=== PATIENT | female | born 1960 | race Caucasian/White ===

== ENCOUNTER 2017-09-05 12:33 | Inpatient (IN) ==
[2017-09-05] MEDS ORDERED: FLEXERIL PO PRN (12:54)
[2017-09-05 13:06] VITALS: BMI 36.0
[2017-09-05] MEDS: ROCEPHIN 1 GM in SODIUM CHLORIDE 50 ML IV SCH (13:34)
[2017-09-05] MEDS: SOLU-CORTEF 250 MG IVP SCH ×2 (13:35→21:45)
[2017-09-05] MEDS: DEXTROSE 5%-1/2NS IV SOLUTION 1,000 ML IV SCH (13:35)
[2017-09-05] MEDS: ZITHROMAX PO SCH (13:35)
--- NOTE | 2017-09-05 15:26 | DI ---
EXAM: Two views of the chest. History: Bronchitis. Findings: Heart size is within normal limits. No focal consolidation. No appreciable pleural fluid and no pneumothorax. Calcified granuloma within the left lower lobe. Hiatal hernia. Postsurgical changes of the cervical spine. Postsurgical changes of the lumbar spine. Moderate to severe degener ative disc disease within the upper lumbar spine. Impression: 1. No acute cardiopulmonary process. 2. Hiatal hernia
[2017-09-05] MEDS: XOPENEX 1.25 MG NEB SCH ×2 (17:05→23:03)
[2017-09-05] MEDS: TUSSIONEX PO SCH ×2 (17:22→21:45)
[2017-09-06] MEDS: DEXTROSE 5%-1/2NS IV SOLUTION 1,000 ML IV SCH ×2 (00:53→08:55)
[2017-09-06] MEDS: PRILOSEC PO SCH (05:39)
[2017-09-06] MEDS: SOLU-CORTEF 250 MG IVP SCH ×3 (05:39→21:09)
[2017-09-06] MEDS: XOPENEX 1.25 MG NEB SCH ×4 (05:45→22:50)
[2017-09-06] MEDS ORDERED: NON-FORMULARY MEDICATION (Omeprazole Magnesium [Prilosec Otc] 1 TAB) PO SCH (06:30)
[2017-09-06] MEDS ORDERED: DEXTROSE 5%-1/2NS IV SOLUTION 1,000 ML IV SCH (08:14)
[2017-09-06] MEDS: ROCEPHIN 1 GM in SODIUM CHLORIDE 50 ML IV SCH (08:52)
[2017-09-06] MEDS: TUSSIONEX PO SCH ×2 (08:53→21:09)
[2017-09-06] MEDS: ZITHROMAX PO SCH (08:53)
[2017-09-06] MEDS: PROZAC PO SCH (08:53)
[2017-09-06] MEDS: ZEBETA PO SCH (08:53)
[2017-09-06] MEDS: ULTRAM PO SCH (08:53)
[2017-09-06] MEDS: [UNRECOGNIZED DRUG - OTHER] PO SCH (08:54)
--- NOTE | 2017-09-06 09:38 | PCM.PROG ---
Attending Provider: ATTENDING PROVIDER: Dr. JEN AGUILAR This patient is seen with Jayne Agarwal, Nurse Practitioner. DATE OF SERVICE: 09/06/17 SUBJECTIVE: This 57 year old WHITE/ F was hospitalized 09/05/17. The patient is sitting in bed, alert. States she didn't sleep last night. She still has severe congestion, cough. No fever. REVIEW OF SYSTEMS: CONSTITUTIONAL: Weakness. No night sweats. No malaise, lethargy. No fever or chills. HEENT: Eyes: No visual changes. No eye pain. No eye discharge. ENT: No runny nose. No epistaxis. No sinus pain. No odynophagia. No congestion. RESPIRATORY: Cough and congestion. No hemoptysis. No shortness of breath. CARDIOVASCULAR: No angina symptoms. No CHF symptoms. No atypical chest pain for CAD. No palpitations. No orthopnea.. GASTROINTESTINAL: No abdominal pain. No nausea or vomiting. No diarrhea or constipation. No hematemesis. No hematochezia. GENITOURINARY: No urgency. No frequency. No dysuria. No hematuria. No obstructive symptoms. No discharge. No pain. No significant abnormal bleeding. MUSCULOSKELETAL: No musculoskeletal pain; no joint swelling. NEUROLOGICAL: Awake, alert, oriented to time, place and person. No headache. No neck pain. No syncope. No seizures. No dizziness. PSYCHIATRIC: Not anxious. No depression. No suicidal thoughts. No homicidal thoughts. SKIN: No rash. No lesions. No wounds. ENDOCRINE: No unexplained weight loss. No weight gain. HEMATOLOGIC/LYMPHATIC: No anemia. No purpura. No petechiae. No prolonged or excessive bleeding. No palpable lymph nodes. PHYSICAL EXAMINATION: GENERAL: The patient is awake, alert and oriented, sitting in bed in no distress. VITAL SIGNS: Temperature 98.1 F, Pulse 70, Respiratory Rate 16, BP 147/92, Pulse Ox 93% HEENT: Head normocephalic, atraumatic. Eyes: Extraocular muscles are intact. Pupils are equal, round and reactive to light and accommodation. Ears: No lesions. Nose appeared normal. Throat: No exudate or erythema. NECK: Supple. No JVD, no carotid bruit. No lymphadenopathy or thyromegaly. LUNGS: Bilateral rhonchi on auscultation. Percussion note normal. Chest symmetrical. HEART: S1, S2, no S3. No murmurs. No cyanosis or clubbing. No ascites. Pulses: Dorsalis pedis and posterior tibial pulses +1 to +2 both sides. ABDOMEN: Soft. Non-tender. Bowel sounds active. No CVA tenderness. No mass felt. EXTREMITIES: No edema. Full range of motion of all extremities, equal. NEUROLOGIC: No focal deficit. Cranial nerves II through XII are grossly intact. No headache, no double vision or headache. SKIN: Not dry. Intact. Turgor-normal. LYMPHATIC: No palpable lymph nodes/no lymphedema. MUSCULOSKELETAL: Normal joints with no swelling. Muscle tone is normal. LAB REVIEW: 09/06/17 04:30 09/06/17 04:30 09/06/17 04:30: Sodium 141, Potassium 3.9, Chloride 103, Carbon Dioxide 25, Anion Gap 16.9, BUN 15, Creatinine 0.72, Estimated GFR (MDRD) 83.00, BUN/ Creatinine Ratio 20.83, Glucose 155 H D, Calcium 9.1, Total Bilirubin 0.2, AST 20, ALT 27, Alkaline Phosphatase 134, Total Protein 7.0, Albumin 3.2 L, Globulin 3.8, Albumin/Globulin Ratio 0.84 09/06/17 04:30: WBC 8.30, RBC 3.49 L, Hgb 10.8 L, Hct 32.9 L, MCV 94.3, MCH 30.9 , MCHC 32.8, RDW Coeff of Winnie 13.5, Plt Count 279, Immature Gran % (Auto) 0.6, Neut % (Auto) 82.2, Lymph % (Auto) 13.6, [place] % (Auto) 3.6, Eos % (Auto) 0.0, Baso % (Auto) 0.0, Immature Gran # (Auto) 0.1, Neut # (Auto) 6.8, Lymph # (Auto ) 1.1, [place] # (Auto) 0.3 L, Eos # (Auto) 0.0, Baso # (Auto) 0.0 09/05/17 13:00: Influ A Molecular Assay Negative by naat, Influ B Molecular Assay Negative by naat 09/05/17 12:55: Sodium 140, Potassium 3.6, Chloride 104, Carbon Dioxide 26, Anion Gap 13.6, BUN 18, Creatinine 0.70, Estimated GFR (MDRD) 86.00, BUN/ Creatinine Ratio 25.71, Glucose 99, Calcium 9.3, Total Bilirubin 0.3, AST 24, ALT 28, Alkaline Phosphatase 141, Total Protein 7.6, Albumin 3.5, Globulin 4.1, Albumin/Globulin Ratio 0.85 09/05/17 12:55: WBC 11.38 H, RBC 3.78 L, Hgb 11.9 L, Hct 35.6 L, MCV 94.2, MCH 31.5 H, MCHC 33.4, RDW Coeff of Winnie 13.4, Plt Count 320, Immature Gran % (Auto) 0.4, Neut % (Auto) 79.4, Lymph % (Auto) 14.0, [place] % (Auto) 5.9, Eos % (Auto) 0.0, Baso % (Auto) 0.3, Immature Gran # (Auto) 0.0, Neut # (Auto) 9.1 H, Lymph # (Auto) 1.6, [place] # (Auto) 0.7, Eos # (Auto) 0.0, Baso # (Auto) 0.0 ASSESSMENT: 1. ACUTE PNEUMONITIS 2. FLU LIKE SYNDROME 3. DEHYDRATION RESOLVED PLAN: 1. Decrease IV antibiotics 80 cc/hr 2. Continue IV steroids 3. 1 mg Ativan q.h.s. Plan and coordination of the patient's care discussed in the presence of Manager Market and nurse. CONDITION: Stable SCRIBED BY: BISHNU WATSON Sports Cartoonist scribed while in presence of service performed by Dr. Aguilar/Jayne Agarwal APRN on 09/06/17 ([id number])
[2017-09-06] MEDS ORDERED: ATIVAN PO SCH (21:00)
[2017-09-07] MEDS: XOPENEX 1.25 MG NEB SCH ×2 (04:42→11:09)
[2017-09-07] MEDS: PRILOSEC PO SCH (05:37)
[2017-09-07] MEDS: SOLU-CORTEF 250 MG IVP SCH (05:37)
[2017-09-07] MEDS ORDERED: K-DUR PO STA (08:40)
[2017-09-07] MEDS: ROCEPHIN 1 GM in SODIUM CHLORIDE 50 ML IV SCH (09:54)
[2017-09-07] MEDS: ZITHROMAX PO SCH (09:55)
[2017-09-07] MEDS: ZEBETA PO SCH (09:55)
[2017-09-07] MEDS: PROZAC PO SCH (09:55)
[2017-09-07] MEDS: [UNRECOGNIZED DRUG - OTHER] PO SCH (09:55)
[2017-09-07] MEDS: ULTRAM PO SCH (09:57)
[2017-09-07] MEDS: TUSSIONEX PO SCH (09:57)
--- NOTE | 2017-09-07 10:01 | PN ---
DATE OF SERVICE: 09/06/17 SUBJECTIVE: The patient was hospitalized with acute bronchitis/pneumonitis. Hydration status has improved. The patient had a restless night likely due from steroids. PHYSICAL EXAMINATION: HEENT: Head normocephalic, atraumatic. Eyes: Extraocular muscles are intact. Pupils are equal, round and reactive to light and accommodation. Ears: No lesions. Nose appeared normal. Throat: No exudate or erythema. NECK: Supple. No JVD, no carotid bruit. No lymphadenopathy or thyromegaly. LUNGS: Mild wheezing but good air entry. Still coughing. Clear to auscultation. Percussion note normal. Chest symmetrical. HEART: S1, S2, no S3. No murmurs. No cyanosis or clubbing. No ascites. Pulses: Dorsalis pedis and posterior tibial pulses +1 to +2 both sides. ABDOMEN: Soft. Nontender. Bowel sounds active. No CVA tenderness. No mass felt. EXTREMITIES: No edema. Full range of motion of all extremities, equal. NEUROLOGIC: No focal deficit. Cranial nerves II through XII are grossly intact. No headache, no double vision or headache. SKIN: Not dry. Intact. Turgor - normal. LYMPHATIC: No palpable lymph nodes/no lymphedema. MUSCULOSKELETAL: Normal joints with no swelling. Muscle tone is normal. CONDITION: Improved. PLAN: 1. Continue steroids, Antibiotics and NEBS treatment. The patient was seen and examined with Nurse Practitioner. TIME SPENT: More than 30 minutes. Plan and coordination of the patient's care discussed in the presence of nurse. EVARISTO
--- NOTE | 2017-09-07 11:03 | HP ---
DATE OF SERVICE: 09/05/17 REASON FOR HOSPITALIZATION/HISTORY OF PRESENT ILLNESS: Treated for upper respiratory tract infection/ Flu symptoms for 7 days- steroids , antibiotics. No improvement. Seen on 09/03/17. Coughing and wheezing. Did not sleep last night. Appetite not good. No symptoms of CHF and CAD. PAST MEDICAL HISTORY: Mitral valve prolapse Hypertension Dyslipidemia Migraine headaches Fibromyalgia Osteoarthritis DJD spine Hypothyroidism Metabolic Syndrome Small sliding hiatal hernia GERD Diverticulosis Depression/Anxiety PAST SURGICAL HISTORY: Two back fusion Two neck fusions REVIEW OF SYSTEMS: CONSTITUTIONAL: Fever, Fatigue. HEENT: Sinus drainage, no sore throat. RESPIRATORY: Cough, no congestion. CARDIOVASCULAR: No atypical chest pain for coronary artery disease. No angina , CHF symptoms, palpitations or shortness of breath. GASTROINTESTINAL: No melena or abdominal pain. No GERD. GENITOURINARY: No hematuria, no prostatism, no polyuria. CONSUMER SAFETY OFFICER: No blackout, Dizziness, no headache, no double vision. MUSCULOSKELETAL: Osteoarthritis pain, no joint swelling. ENDOCRINE: No weight loss, no weight gain. SKIN: Not dry, no rash. PSYCHIATRIC: Anxious, no depression, no suicidal thoughts, no homicidal thoughts. SOCIAL HISTORY: Marital Status: Lives with spouse. Alcohol Usage: No. Tobacco Usage: No. FAMILY HISTORY: Father COPD Mother COPD Brother 2- 1 Diabetes Mellitus type 2 at 58 and one alive 57 TIA Sister 1 age 50 Diabetes Mellitus MEDICATIONS: Imitrex 50mg PRN Zebeta 5mg PO daily Tramadol 50mg PO daily Hormones Prozac 60mg PO daily Flexeril 5mg PO three times a day PRN Pravachol 20mg PO daily Omeprazole 20mg PO QDAC ALLERGIES: Lipitor Wellbutrin Lexapro DN 100 PHYSICAL EXAMINATION: V/S: Pulse 67, blood pressure 126/82, Temperature 98.8, Oxygen saturation 95%. GENERAL APPEARANCE: Oriented times three. HEENT: Normal. NECK: No JVP, no bruits. RESPIRATORY: Lungs are clear with decreased breath sounds. CARDIOVASCULAR: S1, S2, no S3, no murmurs. No cyanosis, clubbing. No ascites. GI/ABDOMEN: No tenderness. Bowel sounds are active. EXTREMITIES: edema, pulses +1, equal. CONSUMER SAFETY OFFICER: Deep tendon reflexes, sensory, motor and gait all normal. RECTAL: Dr. Dupont 2015/PELVIC: Dr. Andrade . Mammogram -[facility] 08/21/16 negative [facility] SKIN: Dry. Skin Turgor: Not good. ASSESSMENT: 1. Acute pneumonia/bronchitis 2. Dehydration 3. Flu Syndrome 4. Hyperglycemia 5. L Spine surgery, [place] 6. CURTIS 7. Depression 8. Fibromyalgia 9. Mets syndrome 10.Migraine headaches 11.Anemia 12.Dyslipidemia PLAN: 1. Admit regular 2. Diet regular 3. 1000cc D5 1/2 normal saline 8 hourly 4. Solu-Cortef 125mg IV now and 8 hours 5. Xopenex NEBS Q 6 hours 6. Zithromax 500mg PO daily x3 days 7. Rocephin 1 gram PO Q 24 hourly 8. Tussionex one teaspoon PO now and twice a day 9. X-ray chest and EKG today 10.Rapid Flu A and B 11.Continue all home medication except Prednisone, Keflex and Phenergan with codeine 12.Sputum for culture and sensitivity 13.CBC and CMP today and daily AM TIME SPENT: More than 70 minutes. MTDD
--- NOTE | 2017-09-07 11:17 | PCM.PROG ---
Attending Provider: ATTENDING PROVIDER: Dr. JEN AGUILAR This patient is seen with Jayne Agarwal, Nurse Practitioner. DATE OF SERVICE: 09/07/17 SUBJECTIVE: This 57 year old WHITE/ F was hospitalized 09/05/17. The patient is lying in bed, alert. She walked around yesterday and is feeling much better. She is not short of breath. No fever. REVIEW OF SYSTEMS: CONSTITUTIONAL: Fatigue. No night sweats. No malaise, lethargy. No fever or chills. HEENT: Eyes: No visual changes. No eye pain. No eye discharge. ENT: No runny nose. No epistaxis. No sinus pain. No odynophagia. No congestion. RESPIRATORY: Cough. No congestion. No hemoptysis. No shortness of breath. CARDIOVASCULAR: No angina symptoms. No CHF symptoms. No atypical chest pain for CAD. No palpitations. No orthopnea.. GASTROINTESTINAL: No abdominal pain. No nausea or vomiting. No diarrhea or constipation. No hematemesis. No hematochezia. GENITOURINARY: No urgency. No frequency. No dysuria. No hematuria. No obstructive symptoms. No discharge. No pain. No significant abnormal bleeding. MUSCULOSKELETAL: No musculoskeletal pain; no joint swelling. NEUROLOGICAL: Awake, alert, oriented to time, place and person. No headache. No neck pain. No syncope. No seizures. No dizziness. PSYCHIATRIC: Not anxious. No depression. No suicidal thoughts. No homicidal thoughts. SKIN: No rash. No lesions. No wounds. ENDOCRINE: No unexplained weight loss. No weight gain. HEMATOLOGIC/LYMPHATIC: No anemia. No purpura. No petechiae. No prolonged or excessive bleeding. No palpable lymph nodes. PHYSICAL EXAMINATION: GENERAL: The patient is awake, alert and oriented, sitting in bed in no distress. VITAL SIGNS: Temperature 98.5 F, Pulse 89, Respiratory Rate 18, BP 137/94, Pulse Ox 97% HEENT: Head normocephalic, atraumatic. Eyes: Extraocular muscles are intact. Pupils are equal, round and reactive to light and accommodation. Ears: No lesions. Nose appeared normal. Throat: No exudate or erythema. NECK: Supple. No JVD, no carotid bruit. No lymphadenopathy or thyromegaly. LUNGS: Diminished breath sounds bilaterally significantly improved. Clear to auscultation. Percussion note normal. Chest symmetrical. HEART: S1, S2, no S3. No murmurs. No cyanosis or clubbing. No ascites. Pulses: Dorsalis pedis and posterior tibial pulses +1 to +2 both sides. ABDOMEN: Soft. Non-tender. Bowel sounds active. No CVA tenderness. No mass felt. EXTREMITIES: No edema. Full range of motion of all extremities, equal. NEUROLOGIC: No focal deficit. Cranial nerves II through XII are grossly intact. No headache, no double vision or headache. SKIN: Not dry. Intact. Turgor-normal. LYMPHATIC: No palpable lymph nodes/no lymphedema. MUSCULOSKELETAL: Normal joints with no swelling. Muscle tone is normal. LAB REVIEW: 09/07/17 05:28 09/07/17 05:28 09/07/17 05:28: Sodium 142, Potassium 3.4 L, Chloride 102, Carbon Dioxide 27, Anion Gap 16.4, BUN 20 H, Creatinine 0.68, Estimated GFR (MDRD) 89.00, BUN/ Creatinine Ratio 29.41, Glucose 123 H, Calcium 8.8, Total Bilirubin 0.1, AST 29 , ALT 32, Alkaline Phosphatase 131, Total Protein 6.7, Albumin 3.0 L, Globulin 3.7, Albumin/Globulin Ratio 0.81 09/07/17 05:28: WBC 9.21, RBC 3.41 L, Hgb 10.5 L, Hct 32.0 L, MCV 93.8, MCH 30.8 , MCHC 32.8, RDW Coeff of Winnie 13.7, Plt Count 311, Immature Gran % (Auto) 0.7, Neut % (Auto) 74.6, Lymph % (Auto) 17.3, [place] % (Auto) 7.4, Eos % (Auto) 0.0, Baso % (Auto) 0.0, Immature Gran # (Auto) 0.1, Neut # (Auto) 6.9, Lymph # (Auto ) 1.6, [place] # (Auto) 0.7, Eos # (Auto) 0.0, Baso # (Auto) 0.0 ASSESSMENT: 1. ACUTE PNEUMONITIS 2. FLU LIKE SYNDROME 3. DEHYDRATION RESOLVED PLAN: 1. D/C home 2. Restart Prednisone and Keflex at home 3. Tussionex b.i.d. 4. ProAir Hfa four times a day 5. Potassium 40 mEq before discharge Plan and coordination of the patient's care discussed in the presence of Custom Studio Coordinator and nurse. CONDITION: Stable SCRIBED BY: BISHNU WATSON Choir Director scribed while in presence of service performed by Dr. Aguilar/Jayne Agarwal APRN on 09/07/17 ([id number])
[2017-09-07 13:51] VITALS: BP 129/86; TEMP 98
--- NOTE | 2017-09-07 14:59 | CM.DICTOOL ---
ADMISSION: 09/05/17 12:33 DISCHARGE: 09/07/17 DATE OF SERVICE: 09/07/17 FINAL DIAGNOSIS ACUTE PNEUMONITIS BRONCHITIS DEHYDRATION FLU-LIKE SYMPTOMS MITRAL VALVE PROLAPSE HYPERTENSION DYLSIPIDEMIA MIGRAINE HEADACHES FIBROMYALGIA OSTEOARTHRITIS DJD SPINE HYPOTHYROIDISM METABOLIC SYNDROME SMALL SLIDING HIATAL HERNIA GERD DIVERTICULOSIS DEPRESSION/ANXIETY POLYPECTOMY, 08/03/15 (DR. DE LEON) CERVICAL FUSION, (C4-5), 2006 LUMBAR FUSION, (L4-5), 2004 LAST VITALS Temp Pulse Resp BP Pulse Ox 98.2 F 82 18 143/90 H 95 09/07/17 10:00 09/07/17 10:00 09/07/17 10:00 09/07/17 10:00 09/07/17 10:00 ACTIVE HOME MEDICATIONS Bisoprolol Fumarate (Zebeta) 5 mg PO DAILY [facility] Last Admin: 09/07/17 09:55 Dose: 5 mg Cyclobenzaprine HCl (Flexeril) 5 mg PO TID PRN PRN Reason: pain Fluoxetine HCl (Prozac) 60 mg PO DAILY [facility] Last Admin: 09/07/17 09:55 Dose: 60 mg Estrogen,Con/M-Progest Acet [Prempro 0.625-2.5 Mg Tablet] 1 each PO DAILY [facility] Last Admin: 09/07/17 09:55 Dose: 1 each Omeprazole (Prilosec) 20 mg PO QDAC [facility] Last Admin: 09/07/17 05:37 Dose: 20 mg Tramadol HCl (Ultram) 50 mg PO DAILY [facility] Last Admin: 09/07/17 09:57 Dose: 50 mg ALLERGIES No Known Allergies Allergy (Verified 09/16/13 17:17) NEW PRESCRIPTIONS: PROAIR TUSSIONEX 5 ML, TAKE 5 ML BY MOUTH TWICE DAILY NEEDED FOR COUGHING RESUME YOUR KEFLEX AND PREDNISONE PRESCRIBED JUST PRIOR TO THIS HOSPITALIZATION SMOKING: FORMER SMOKER STOPPED SMOKING IN 2014 DISEASE SPECIFIC EDUCATION: PNEUMONITIS BRONCHITIS DEHYDRATION HOME MEDICATIONS NEW PRESCRIPTIONS FOLLOW UP LAB REVIEW: 09/07/17 05:28 09/07/17 05:28 09/07/17 05:28: Sodium 142, Potassium 3.4 L, Chloride 102, Carbon Dioxide 27, Anion Gap 16.4, BUN 20 H, Creatinine 0.68, Estimated GFR (MDRD) 89.00, BUN/ Creatinine Ratio 29.41, Glucose 123 H, Calcium 8.8, Total Bilirubin 0.1, AST 29 , ALT 32, Alkaline Phosphatase 131, Total Protein 6.7, Albumin 3.0 L, Globulin 3.7, Albumin/Globulin Ratio 0.81 09/07/17 05:28: WBC 9.21, RBC 3.41 L, Hgb 10.5 L, Hct 32.0 L, MCV 93.8, MCH 30.8 , MCHC 32.8, RDW Coeff of Winnie 13.7, Plt Count 311, Immature Gran % (Auto) 0.7, Neut % (Auto) 74.6, Lymph % (Auto) 17.3, [place] % (Auto) 7.4, Eos % (Auto) 0.0, Baso % (Auto) 0.0, Immature Gran # (Auto) 0.1, Neut # (Auto) 6.9, Lymph # (Auto ) 1.6, [place] # (Auto) 0.7, Eos # (Auto) 0.0, Baso # (Auto) 0.0 PLAN: DISCHARGE HOME TODAY RETURN TO SEE DR. AGUILAR ON RESUME YOUR HOME MEDICATIONS PER LIST PROVIDED BY THE NURSING STAFF NEW MEDICATION PROAIR TUSSIONEX 5 ML, TAKE 5 ML BY MOUTH TWICE DAILY NEEDED FOR COUGHING RESUME YOUR KEFLEX AND PREDNISONE PRESCRIBED JUST PRIOR TO THIS HOSPITALIZATION ACTIVITY GET PLENTY OF REST AT HOME. GRADUALLY INCREASE YOUR ACTIVITY ACCORDING TO YOUR TOLERATION DIET HEALTHY HEART SUMMARY THE PATIENT IS ALERT AND ORIENTED 3. SHE CURRENTLY RESIDES AT HOME WITH HER SPOUSE. SHE IS INDEPENDENT WITH ADL'S AND IS ABLE TO PROVIDE HER OWN TRANSPORTATION. SHE DOES NOT REQUIRE DME, HOME HEALTH OR HOMEMAKING SERVICES. SHE DESIRES TO RETURN HOME AT DISCHARGE. THE SKIN TURGOR IS GOOD AND INTACT WITHOUT DECUBITUS ULCERS. HYDRATION AND NUTRITIONAL STATUS ARE VERY GOOD. THE PATIENT IS AFEBRILE AND PAIN FREE. SHE IS AWARE AND AGREEABLE FOR DISCHARGE PLANS TODAY. CURRENT CODE STATUS FULL CODD CATINA MENA APRN JEN AGUILAR M.D.
--- NOTE | 2017-09-11 11:37 | PN ---
DATE OF SERVICE: 09/07/17 SUBJECTIVE: 57 year old white female hospitalized with acute bronchitis/pneumonitis. The patient's condition has improved some. She is feeling well. REVIEW OF SYSTEMS: CONSTITUTIONAL: No night sweats. No fatigue, malaise, lethargy. No fever or chills. HEENT: Eyes: No visual changes. No eye pain. No eye discharge. ENT: No runny nose. No epistaxis. No sinus pain. No sore throat. No odynophagia. No congestion. RESPIRATORY: No cough, no congestion. No hemoptysis. No shortness of breath. CARDIOVASCULAR: No angina symptoms. No CHF symptoms. No atypical chest pain for CAD. No palpitations. No orthopnea. GASTROINTESTINAL: No abdominal pain. No nausea or vomiting. No diarrhea or constipation. No hematemesis. No hematochezia. Appetite has improved. GENITOURINARY: No urgency. No frequency. No dysuria. No hematuria. No obstructive symptoms. No discharge. No pain. No significant abnormal bleeding. MUSCULOSKELETAL: No musculoskeletal pain; no joint swelling. NEUROLOGICAL: No headache. No neck pain. No syncope. No seizures. No dizziness. PSYCHIATRIC: Not anxious. No depression. No suicidal thoughts. No homicidal thoughts. SKIN: No rash. No lesions. No wounds. ENDOCRINE: No unexplained weight loss. No weight gain. HEMATOLOGIC/LYMPHATIC: No anemia. No purpura. No petechiae. No prolonged or excessive bleeding. No palpable lymph nodes. PHYSICAL EXAMINATION: VITALS: Stable with blood pressure borderline. HEENT: Head normocephalic, atraumatic. Eyes: Extraocular muscles are intact. Pupils are equal, round and reactive to light and accommodation. Ears: No lesions. Nose appeared normal. Throat: No exudate or erythema. NECK: Supple. No JVD, no carotid bruit. No lymphadenopathy or thyromegaly. LUNGS: Decreased breath sounds but good air entry. Percussion note normal. Chest symmetrical. HEART: S1, S2, no S3. No murmurs. No cyanosis or clubbing. No ascites. Pulses: Dorsalis pedis and posterior tibial pulses +1 to +2 both sides. ABDOMEN: Soft. Nontender. Bowel sounds active. No CVA tenderness. No mass felt. EXTREMITIES: No edema. Full range of motion of all extremities, equal. NEUROLOGIC: No focal deficit. Cranial nerves II through XII are grossly intact. No headache, no double vision or headache. SKIN: Not dry. Intact. Turgor - normal. LYMPHATIC: No palpable lymph nodes/no lymphedema. MUSCULOSKELETAL: Normal joints with no swelling. Muscle tone is normal. The patient was seen and examined with Nurse Practitioner. PLAN: 1. Discharge on steroids, Keflex, Tussionex and Proventil inhaler TIME SPENT: More than 30 minutes. Plan and coordination of the patient's care discussed in the presence of nurse. EVARISTO
--- NOTE | 2017-09-11 11:38 | PN ---
09/05/17: Level 5 09/06/17: Intermediate 09/07/17: D as in discharge MTDD
--- NOTE | 2017-09-24 10:12 | DS ---
DATE OF SERVICE: 09/07/17 FINAL DIAGNOSIS: 1. ACUTE PNEUMONITIS 2. BRONCHITIS 3. DEHYDRATION 4. FLU-LIKE SYMPTOMS 5. MITRAL VALVE PROLAPSE 6. HYPERTENSION 7. DYSLIPIDEMIA 8. MIGRAINE HEADACHES 9. FIBROMYALGIA 10. OSTEOARTHRITIS 11. DJD SPINE 12. HYPOTHYROIDISM 13. METABOLIC SYNDROME 14. SMALL SLIDING HIATAL HERNIA 15. GERD 16. DIVERTICULOSIS 17. DEPRESSION/ANXIETY 18. POLYPECTOMY, 08/03/15 (DR. DE LEON) 19. CERVICAL FUSION (C4-5) 2006 20. LUMBAR FUSION, (l4-5), 2004 DISCHARGE INSTRUCTIONS: Followup appointment with Dr. Prasad on 09/13/17 at 1:15 p.m. MEDICATIONS AT DISCHARGE: Zebeta 5 mg p.o. daily SUZANNA Flexeril 5 mg p.o. t.i.d. p.r.n. Prozac 60 mg p.o. daily SUZANNA Prempro 0.625-2.5 mg one each p.o. daily SUZANNA Prilosec 20 mg p.o. q.d a.c. SUZANNA Ultram 50 mg p.o. daily SUZANNA Resume your Keflex and Prednisone prescribed just prior to this hospitalization NEW PRESCRIPTIONS: ProAir Tussionex 5 mL, take 5 mL by mouth twice daily as needed for coughing Resume your Keflex and Prednisone prescribed just prior to this hospitalization DIET INSTRUCTIONS: Healthy Heart ACTIVITY: Get plenty of rest at home. Gradually increase your activity according to your toleration. SMOKING: Former smoker Stopped smoking in 2014 DISEASE SPECIFIC EDUCATION: Pneumonitis Bronchitis Dehydration Home Medications New prescriptions Follow up HOSPITAL COURSE: This is a 57-year-old white female who is a direct admit from our office. She had been in the office with bronchitis type symptoms, low grade fever, cough and congestion. She was given IM Decadron 4 mg, started on Keflex 500 mg p.o. t.i.d., Prednisone 20 mg b.i.d. She presented the following day with worsening fever, shortness of breath and coughing. She stated that she was feeling worse. We directly admitted her from our office. Kidney function was slightly elevated showing dehydration. Flu swab was negative. Chest x-ray revealed early developing possible pneumonia. We started her on Rocephin 1 gm IV daily along with Zithromax p.o. 500 mg daily times three days, started on Xopenex neb treatments q.6hr as well as Solu-Cortef 125 mg IV q.8hr. Yesterday the first day after admission she had improved somewhat. She states that she didn't sleep very well the night before so we gave her Ativan 1 mg at bedtime last night. She states she slept well. She had gotten up and about in the room yesterday. She has been eating 75 to 100%. This morning on examination she no longer had any wheezing. She was moving air a lot better. She states that she feels the nebulization treatments help significantly. She has not ran any fevers since admission and states that she has been doing well and she would like to go home. All of her vital signs have been stable along with her labs. Today, temperature 98.5, heart rate 89, respirations 18, BP 137/94. Pulse ox 97% on room air. White count 9.21, hemoglobin 10.5, hematocrit 32, platelets 311, sodium 141, potassium 3.9, BUN 15, creatinine 0.72. We will discharge her home. She is to resume her p.o. Keflex that she is on and she had that for the next 10 days. She will receive the third and final dose of Zithromax today. She will resume her Prednisone which was 20 mg b.i.d. for 5 days and one daily for 5 days. Will give her a prescription for Tussionex to use for coughing as well as ProAir inhaler which I have instructed her to use at least 3 times a day scheduled until her cough resolves. Will give her 40 mEq of potassium before she goes home as her potassium today is 3.4. The patient will be discharged in stable condition. TIME SPENT: More than 60 minutes. [place]
== END 2017-09-07 15:00 | disposition home or self-care (01) | DRG 202 ==
LOC: MEDSURG B 12:33
PROVIDERS: ADMIT Internal Medicine; ATTEND Internal Medicine
DX: J20.9 Acute bronchitis, unspecified (principal); J18.9 Pneumonia, unspecified organism; E86.0 Dehydration; R09.89 Other specified symptoms and signs involving the circulatory and respiratory systems; I34.1 Nonrheumatic mitral (valve) prolapse; I10 Essential (primary) hypertension; E78.5 Hyperlipidemia, unspecified; G43.909 Migraine, unspecified, not intractable, without status migrainosus; M79.7 Fibromyalgia; M19.90 Unspecified osteoarthritis, unspecified site; M47.9 Spondylosis, unspecified; E03.9 Hypothyroidism, unspecified; E88.81 Metabolic syndrome and other insulin resistance; K44.9 Diaphragmatic hernia without obstruction or gangrene; K21.9 Gastro-esophageal reflux disease without esophagitis; K57.90 Diverticulosis of intestine, part unspecified, without perforation or abscess without bleeding; F41.8 Other specified anxiety disorders; Z79.899 Other long term (current) drug therapy
CPT/HCPCS: 36415; 80053; 85025; 87502; 94640

== ENCOUNTER 2018-08-06 06:51 | Day surgery (SDC) ==
[2018-08-06] MEDS ORDERED: LIDOCAINE 1% 20 ML MDV ID STA (07:25)
[2018-08-06] MEDS ORDERED: DIPRIVAN 20 ML VIAL IVP ONE (08:00)
[2018-08-06] MEDS ORDERED: VERSED ONE (08:00)
[2018-08-06] MEDS ORDERED: LIDOCAINE HCL 2% LUER-JET ONE (08:00)
--- NOTE | 2018-08-07 07:36 | OP ---
INDICATIONS FOR PROCEDURE: 58-year-old female presents for endoscopy, surveillance examination for Wallis's. She has a history of short segment Wallis's disease. She tells me she does have some breakthrough heartburn despite Omeprazole 20 mg daily. MEDICATIONS: SEE ANESTHESIA NOTES. PROCEDURE: ENDOSCOPY, ESOPHAGEAL BIOPSY. REPORT: The risks, benefits, alternatives and limitations were discussed in detail with the patient. Informed consent was obtained. After adequate sedation was achieved, the video endoscope was introduced in the posterior pharynx and esophagus under direct vision and easily advanced down to the second portion of the duodenum. I then slowly withdrew. The duodenal mucosa appeared unremarkable as did the duodenal bulb. The antrum and body were relatively unremarkable. The scope was retroflexed to look at the cardia and fundus which revealed a hiatal hernia. The scope was anteflexed and withdrawn back through the esophagus. The GE junction was irregular and located at the top of the gastric folds. I obtained four quadrant biopsies from the GE junction. The esophagus otherwise appeared unremarkable. There was a 4 to 5 cm sliding hiatal hernia. The patient tolerated the procedure well with stable vital signs and pulse oximetry throughout. IMPRESSION: 1. IRREGULAR GE JUNCTION CONSISTENT WITH HISTORY OF SHORT SEGMENT WALLIS'S. 2. 4 TO 5 CM SLIDING HIATAL HERNIA. RECOMMENDATIONS: 1. Strict reflux precautions. 2. Await pathology results. If there is no evidence of dysplasia or atypia, I recommend repeat endoscopy examination again in three years. 3. For her breakthrough reflux, I have suggested she try an [id number] H2 leonard on an as needed basis as directed. 4. Office visit as needed with us. CC: DR. LAUREN LOERA
[2018-08-07 12:22] VITALS: BP 121/78
== END 2018-08-06 09:30 | disposition home or self-care (01) ==
LOC: SURG 06:51
PROVIDERS: ATTEND Internal Medicine Gastroenterology
DX: K22.70 Barrett's esophagus without dysplasia (principal); K44.9 Diaphragmatic hernia without obstruction or gangrene